=== PATIENT | female | born 1950 | race Caucasian/White ===

== ENCOUNTER → 2016-08-18 | Outpatient (CLI) | payer BC ==
[2016-08-18 11:44] LABS: HEMOGLOBIN 15.8 g/dL (12.2-16.2); LYMPH # 1.1 K/mm3 (0.7-4.5); LYMPH % 23.8 % (10-50.0)
--- NOTE | 2016-08-18 13:33 | RADIOLOGY REPORT PS360 ---
CHEST(2 VIEWS-NOT PORTABLE) HISTORY: Shortness of breath, history of mitral valve repair SOB ORDERING PHYSICIAN: Marco A Mcgregor MD PATIENT AGE: 65 years COMPARISON: 07/31/2012 FINDINGS: Probable mitral valve replacement. Normal heart size. No CHF. Minimal density noted in the right midline be due to an area of atelectasis or peribronchial inflammatory change. Lungs otherwise clear. No pleural effusion. No acute bony abnormalities. IMPRESSION: Prior MVR. Minimal peribronchial inflammatory change right midlung
[2016-08-18 13:55] LABS: BUN 19 mg/dL (7-18)
[2016-08-18 13:58] LABS: GFR (ESTIMATED) 56 ML/MIN (59-)
== END ==
LOC: LAB 11:31
PROVIDERS: Internal Medicine Adolescent Medicine
DX: R00.0 Tachycardia, unspecified (principal); R94.31 Abnormal electrocardiogram [ECG] [EKG]; R06.02 Shortness of breath

== ENCOUNTER 2017-06-23 11:43 | Emergency (ER) | payer MEDICARE, BC ==
[~2017-06-23] VITALS: Ht 160 cm; Wt 76.2 kg
--- OUTSIDE RECORDS SUMMARY | 2017-06-23 11:53 | External Medical Summary Rpt ---
Author Author YOSHI Levy, YOSHI Levy Organization [employer] Address Unknown Phone Unavailable
--- OUTSIDE RECORDS SUMMARY | 2017-06-23 11:53 | External Medical Summary Rpt | CCD ---
Author Author , YOSHI BELLE Address Unknown Phone [email or web address] Purpose Continuity of Care Document - through 2016
--- OUTSIDE RECORDS SUMMARY | 2017-06-23 11:53 | External Medical Summary Rpt | CCD ---
Author Author , YOSHI BELLE Address Unknown Phone [email or web address] Immunization Name Date Rout CVX Reac Dose Comm Prov Is Faci e tion ent ider Refu lity Give sed n PPV2 10-1 Intr 33 0.5 Hist PD20 No PD20 3 8-20 amus mL oric 255 255 17 cula al r Info rmat ion - Sour ce Unsp ecif ied Infl 10-1 Intr 0.5 Hist PD20 No PD20 uenz 8-20 amus mL oric 255 255 a 17 cula al Quad r Info rmat W/Pr ion es - Sour ce Unsp ecif ied
--- OUTSIDE RECORDS SUMMARY | 2017-06-23 11:53 | External Medical Summary Rpt | CCD ---
Author Author , YOSHI BELLE Address Unknown Phone [email or web address] Purpose Continuity of Care Document - through 2016
--- OUTSIDE RECORDS SUMMARY | 2017-06-23 11:53 | External Medical Summary Rpt | CCD ---
Author Author [employer] Organization [employer] Address Unknown Phone Unavailable Purpose Continuity of Care Document - through 2016
--- OUTSIDE RECORDS SUMMARY | 2017-06-23 11:53 | External Medical Summary Rpt | CCD ---
Author Author , YOSHI BELLE Address Unknown Phone [email or web address] Immunization Name Date Rout CVX Reac Dose [...]
[2017-06-23] MEDS ORDERED: ATORVASTATIN CA20 M1 PO (11:56)
--- NOTE | 2017-06-23 11:59 | Emergency Room Report ---
History of Present Illness Time Seen by [id number] Presenting Problem in Triage Pt arrived:Walked Presenting Problem:left lateral finger-5th digit laceration Onset of symptoms date/time:06/23/1709/08/1119 or onset unknown for: Treatment Prior to Arrival: [employer] Provided by: Sepsis Risk Assessment: Temp: 98.3 B/P: 132/85 MAP: 100 Pulse: 89 Resp: 18 Recent fever? N Clinical Suspician of Infection? N Mental Status: 1 - Regular (Normal Baseline) Sepsis Risk:Low Sepsis Risk Have you (or family members/close friends) recently traveled outside the [place]? N If Yes, where/when: Have you had exposure to infectious disease within the past month? TB? Other? Specify: Comment The patient nipped the tip of her RIGHT small finger with a pair of pruners. No other injuries. ALLERGIES Coded Allergies: Sulfa (Sulfonamide Antibiotics) (Mild, 06/23/17) ciprofloxacin (From CIPRO) (Mild, 06/23/17) erythromycin base (Mild, 06/23/17) Home Medications Reported Medications Atorvastatin Calcium 20 MG PO DAILY #30 History Medical History Immunization Hx Ped.Immunizations UTD Yes DT/Tetanus 5-10 Years Ago Surgical Hx Previous Surgery?N Social History Smoking Hx Smoker: Never Smoker Tobacco: No Type N/A Are you/the child exposed to second-hand smoke: No Alcohol Alcohol: No Review of Systems All Other Systems Reviewed and Negative Skin see HPI Psychiatric/Neurological denies numbness, denies weakness Physical Exam Vital Signs Vital Signs Date Time Temp Pulse Resp B/P Pulse O2 O2 Flow FiO2 Ox Delivery Rate 06/23 1255 98.3 89 18 132/85 99 06/23 1153 98.3 89 18 132/85 99 General Appearance no apparent distress Respiratory Status No: respiratory distress. Cardiovascular regular rate/rhythm, normal peripheral pulses Extremities 2 cm flap laceration ulnar side of distal phalanx right small finger , adjacent to nailplate., distal neurovascular status intact Neurologic alert, no motor/sensory deficits Medical Decision Making LABS/Meds/Orders Pt receiving controlled substance in ED? No Results/Orders Current Medication Orders Sig/Yahir Start time Last Medication Dose Route Stop Time Status Admin Diphtheria/Pertussis/ 0.5 ML ONCE ONE 06/23 1200 DC 06/23 Tetanus Vacc IM 06/23 1201 1158 Lidocaine HCl 0 .STK-MED ONE 06/23 1152 DC .ROUTE Diphtheria/Pertussis/ 0 .STK-MED ONE 06/23 1151 DC Tetanus Vacc IM Procedures Laceration/Wound Repair Progress Laceration Repair Performed by: RONALD DOWNS Consent: Verbal consent obtained. Risks and benefits: risks, benefits and alternatives were discussed Consent given by: patient Patient identity confirmed: verbally with patient Laceration location: right small finger Laceration length: 2 cm Local anesthetic: 1% plain lidocaine digital block Wound prep: Sterilly scrubbed with Hibiclens and irrigated with copious normal saline. Draping: Sterile in usual manner Patient sedated: no Debridement: none Exploration: no deep structure injury foreign body, or contamination Layers Closed: Skin Suture material, skin: 5-0 prolene Number of sutures: 4 Patient tolerance: Patient tolerated the procedure well with no immediate complications Departure Departure Disposition DC Home or Self Care(routine) Clinical Impression Primary Impression: Finger laceration Qualifiers: Encounter type: initial encounter Finger: little finger Damage to nail status: without damage Foreign body presence: without foreign body Laterality: right Qualified Code: S61.216A - Laceration without foreign body of right little finger without damage to nail, initial encounter Condition STABLE Patient Instructions DI for Laceration Repair Additional Instructions Additional instructions for HAND LACERATION: Clean the wound daily with soap and water. Avoid submerging the wound. No swimming.DO NOT USE any antibiotic ointment such as Neosporin, Polysporin, or triple antibiotic. This will delay healing. See your primary care physician or return to the [facility] in 10 days for suture removal. The [facility] is open 9 AM to 9 PM 7 days a week. Return if any signs of infection including increasing pain, pus drainage, swelling, redness, red streaks, or fever. ED Critical Care Critical Care No at 1306
[2017-06-23 12:55] VITALS: BP 132/85
== END 2017-06-23 12:56 | disposition home or self-care (01) ==
LOC: ER 11:43
PROC: 0HQFXZZ Repair Right Hand Skin, External Approach (ICD-10-PCS; principal; 2017-06-23)
DX: S61.216A Laceration without foreign body of right little finger without damage to nail, initial encounter (principal); W27.1XXA Contact with garden tool, initial encounter; Z23 Encounter for immunization